=== PATIENT | female | born 1960 | race Caucasian/White ===

== ENCOUNTER 2021-05-06 14:48 | Emergency (ER) | payer OTHER, SELFPAY ==
[2021-05-06 14:42] VITALS: BP 112/53; PULSE 67; RESP 18; TEMP 36.8; O2SAT 99
--- NOTE | 2021-05-06 15:00 | DI.RAD_ITS ---
Exam(s) XR KNEE LT 4V+ EXAM: XR KNEE LT 4V+ CLINICAL HISTORY: pain, knee gave out, fell TECHNIQUE: COMPARISON: No exams were available for comparison FINDINGS: Four views were obtained. There may be a small knee joint effusion. There is no evidence of acute f racture or dislocation. IMPRESSION: RADIATION DOSE DELIVERED: Total DLP
[2021-05-06 15:01] VITALS: BP 113/94; PULSE 67; O2SAT 98
[2021-05-06] MEDS: fentaNYL 100 MCG/2 ML VIAL 50 MCG IVP ×2 (15:08→17:12)
--- NOTE | 2021-05-06 15:26 | W.ED.GENAD ---
Discharge Plan Disposition Patient Disposition: HOME Condition: Improving Discharge Details Clinical Impression: MCL sprain of left knee Primary Care Provider: Unknown,Unknown ED Provider: Rossi Khan Home Meds and New Rx's Prescriptions: New oxycodone 5 mg capsule 5 mg PO Q8H PRN (Reason: pain) Qty: 7 RF: 0 diazepam [Valium] 2 mg tablet 2 mg PO BID PRN (Reason: muscle spasm) Qty: 4 RF: 0 Discharge Instructions Instructions: Knee Sprain (ED) Additional Instructions: Use knee immobilizer as directed. Use crutches as directed as needed for ambulation. Rest ice compression elevation. Please follow-up with orthopedics within the neck 3 to 5 days if continued pain. Follow up with primary care provider in 3-5 days. Return to ED sooner if any worsening or concerns. Increase oral fluids. Please take Tylenol or Ibuprofen with food every 4-6 hours as needed for pain and swelling. Referrals: Curry Alvares MD [ [facility]FF [facility]YSICIAN] - 1 week Medical Decision Making <RENÉ Hazel - Last Filed: 05/06/21 16:14> Patient is a 60-year-old female presenting after stepping awkwardly 2 weeks ago, knee pain ever since, knee gave out today. She requires 50 mcg of fentanyl via EMS in route, pain is returning now, extremely limited exam, will provide an additional 50 mcg of fentanyl, obtain x-ray of the left knee, and once pain is adequately controlled, attempt to assess the knee in greater detail. Patient began yelling out in discomfort, reporting her knee has sharp shooting spasm pains. Patient given 5 mg IV Valium. Subsequent evaluation patient is resting comfortably, reports that the spasms have resolved, requesting a warm blanket. Still awaiting x-ray. <Rossi Khan - Last Filed: 05/06/21 23:21> Care assumed from provider (RENÉ Leigh) Please see their initial HPI, PE, and documentation. Discussed patient details and case and pending workup and disposition. Patient is hemodynamically stable, and alert and oriented. Pending left knee x-ray. Patient returns from x-ray is requesting more fentanyl, 50 mics of fentanyl given by staff nurse icu resource team. [facility] x-ray has resulted report shows no acute findings. No evidence of joint effusion. Imaging protocol: XR Left knee. Views: 4 or more views. COMPARISON: No relevant prior studies available. FINDINGS: Bones/joints: Normal. No significant degenerative changes. Soft tissues: Normal. No evidence of joint effusion. IMPRESSION: No acute findings. Thank you for allowing us to participate in the care of your patient. Dictated and Authenticated by: Davidson Rowell MD Upon patient reevaluation she is continuing to complain of severe pain. Intermittent muscle spasms noted to the posterior popliteal space down into her calf and she reports radiation up into her posterior thigh. Negative posterior drawer test increased tenderness with anterior drawer test. Does have medial joint tenderness with Estrellita's test. Patient is [facility] be [facility] She is requesting an MRI which are explained to her that we do not have the capabilities at this time I did offer her CT which patient declined. I also did discuss that even the patient was transferred to another facility that the provider may decide not to order an MRI patient and family are aware of this. Plan is to discharge patient with oxycodone and Valium. Will give p.o. trial here and attempt to get patient up on crutches to see how she does. 1958: [facility] contacted for patient request for Transfer. 2020: Ortho paged. 2022: Informed by staff nurse icu resource team, patient requesting to be discharged. Patient assisted by myself and staff into a wheelchair and out to her car. Patient was given crutches and demonstrated proper use. Patient was given oxycodone and 2 mg of Valium at discharge which seemed to improve her pain somewhat. Discussed follow-up care with orthopedics, home care rest ice compression elevation. Patient verbalized understanding. After patient's discharge I did speak with an ER doctor from the [facility] who reported that their MRI is not working at this time and he also reiterated that an emergent MRI is most likely not indicated at this time for patient symptoms. Patient placed on the orthopedic follow-up list. Differential diagnosis includes but not limited to occult fracture, ligament tear, joint effusion, musculoskeletal sprain or strain, muscle spasms. HPI <RENÉ Hazel - Last Filed: 05/06/21 16:14> General Mode of arrival: EMS. Date/Time Provider Initiated Documentation: 05/06/21 15:02. Limitations to Documentation: no limitations. Information obtained by: patient and EMS. HPI Narrative: This is a 60-year-old female, reports bilateral plantar fasciitis and carpal tunnel, presenting to the ER via EMS for left knee pain. Patient states approximately 2 weeks ago she stepped awkwardly in the field and had primarily anterior knee discomfort ever since. Pain was manageable with [id number] Tylenol or Motrin and she eventually began using a cane. She states today things felt pretty well but throughout the day they got worse, while walking today she had more severe pain and her knee gave out causing her to fall to the ground. She denies any other injury. She denies any numbness, tingling, weakness. Denies history of issues with that knee. Denies chest pain, shortness of breath, fever, history of DVT or PE. EMS called and patient presented after 50 mcg of fentanyl, reports her pain went from a 10 out of 10 down to a 1 out of 10. Patient is hesitant to move her knee, states that when she moves her knee her pain is worse, would like us to cut her pants off. Patient states occasionally she gets pain wraps around from the front of her leg to the posterior aspect of her knee and feels like a spasm. Occasionally she cries out in discomfort. Related Data Home Medications Medication Instructions Recorded Confirmed diazepam [Valium] 2 mg PO BID PRN #4 tab 05/06/21 oxycodone 5 mg PO Q8H PRN #7 cap 05/06/21 Previous Rx's Medication Instructions Recorded diazepam [Valium] 2 mg PO BID PRN #4 tab 05/06/21 oxycodone 5 mg PO Q8H PRN #7 cap 05/06/21 Allergies Allergy/AdvReac Type Severity Reaction Status Date / Time No Known Allergies Allergy Unverified 05/06/21 14:48 General Stated Complaint: Orthopedic BELLE: 3 Review of Systems <RENÉ Hazel - Last Filed: 05/06/21 16:14> Constitutional Constitutional: Denies fever(s) and Denies weakness Cardiovascular Cardiovascular: Denies chest pain and Denies dyspnea Respiratory Respiratory: Denies cough and Denies dyspnea Musculoskeletal Musculoskeletal: Denies deformity, Reports arthralgias, Denies numbness, Reports stiffness and Denies tingling Integumentary/Breasts Skin/Breast: Denies rash Neurologic Neurologic: Denies numbness, Denies tingling and Denies weakness PFSH <RENÉ Hazel - Last Filed: 05/06/21 16:14> Social History Smoking/Tobacco Use Status: Former Tobacco Use Smoking risk assessment performed?: Yes Substance use type: does not use Do you feel safe at home: Yes Do you feel safe in your relationship?: Yes Exam <RENÉ Hazel - Last Filed: 05/06/21 16:14> Const General: cooperative, healthy appearing and no acute distress Orientation: alert, awake and oriented x3 Other: Appears slightly uncomfortable HENMT Head: normal to inspection, normocephalic and atraumatic Eyes General: appearance normal, both eyes and all related structures Conjunctivae: conjunctivae normal Neck Neck: normal visual inspection, trachea midline and supple Resp Effort & Inspection: normal respiratory effort and able to speak in complete sentences Auscultation: clear to auscultation bilaterally Cardio Rate: regular rate Rhythm: regular rhythm Skin General skin exam: no rashes or lesions noted Neuro General: patient alert, patient awake, moves all extremities and no focal motor deficits Cognition: normal cognition Speech: speech normal Motor: muscle tone normal throughout Sensory Exam: no sensory deficits noted Extrem General: normal to inspection and capillary refill normal Other: Left knee exam extremely limited. Patient holds her knee and almost a fully extended position. No obvious deformity, swelling, ecchymosis or erythema. Normal capillary refill and dorsalis pedal pulse. No palpable cord in the calf. Patient is extremely hesitant to bend her knee whatsoever. She has diffuse mild discomfort across the entire aspect of her knee. Unable to assess laxity. Psych Appearance: grossly normal Mental Status: mental status grossly normal Course <RENÉ Hazel - Last Filed: 05/06/21 16:14> Vital Signs Vital signs: Vital Signs Temperature 36.8 C 05/06/21 14:42 Pulse 67 05/06/21 14:42 Respiratory Rate 18 05/06/21 14:42 Blood Pressure 112/53 L 05/06/21 14:42 Pulse Oximetry 99 05/06/21 14:42 Temperature 36.8 C 05/06/21 14:42 Temperature Source Skin 05/06/21 14:42 Pulse 67 05/06/21 15:01 Respiratory Rate 18 05/06/21 14:42 Respiratory Effort Non-Labored 05/06/21 14:49 Blood Pressure 113/94 H 05/06/21 15:01 Blood Pressure Position Supine 05/06/21 14:42 Pulse Oximetry 98 05/06/21 15:01 Oxygen Delivery Method Room Air 05/06/21 14:42 Oxygen Flow Rate 0 05/06/21 14:42 Pain Level 2 05/06/21 15:08 Sign Out <RENÉ Hazel - Last Filed: 05/06/21 16:14> Sign Out Data: Sign Out Comment: Left knee pain for 2 weeks after stepping awkwardly, gave out today, severe pain. 50 mcg of fentanyl via EMS, another dose given here, began having spasms, given a 5 mg IV morphine. Limited knee exam secondary to discomfort. Pedal pulse intact. Awaiting imaging and reevaluation Last updated by David Brenner PA at 05/06/21 16:03
[2021-05-06] MEDS: diazePAM 10 MG/2 ML SYR 5 MG IVP (15:28)
[2021-05-06 16:02] VITALS: PULSE 68; RESP 12; O2SAT 99
[2021-05-06 18:47] VITALS: BP 117/54; PULSE 69; TEMP 36.7; O2SAT 96
[2021-05-06] MEDS: ACETAMINOPHEN 1,000 MG/100 ML BTL 400 MG IVPB (18:54)
--- NOTE | 2021-05-06 19:08 | DI.VRAD_ITS ---
PROCEDURE INFORMATION: Exam: XR Left Knee Exam date and time: 05/06/2021 3:03 PM Age: 60 years old Clinical indication: Injury or trauma; Other: Hiking 1 month ago/ just gave out after fall today; Sprain or strain; Patella or knee; Left TECHNIQUE: Imaging protocol: XR Left knee. Views: 4 or more views. COMPARISON: No relevant prior studies available. FINDINGS: Bones/joints: Normal. No significant degenerative changes. Soft tissues: Normal. No evidence of joint effusion. IMPRESSION: No acute findings. Dictated and Authenticated by: Davidson Rowell MD. Ordering:TAMMI Hernandez MD
[2021-05-06] MEDS: diazePAM 2 MG TAB PO ×2 (20:04→20:47)
[2021-05-06] MEDS: oxyCODONE 5 MG TAB PO (20:12)
[2021-05-06 20:44] VITALS: BP 128/55; PULSE 64; TEMP 36.6; O2SAT 96
== END 2021-05-06 21:16 | disposition home or self-care (01) ==
PROVIDERS: Emergency Provider Registered Nurse Emergency
DX: S83.412A Sprain of medial collateral ligament of left knee, initial encounter (principal); X50.1XXA Overexertion from prolonged static or awkward postures, initial encounter
CPT/HCPCS: 29505; 96365; 96375; 99284; 73564; J0131; J3010; J3360

== ENCOUNTER → 2023-06-05 01:12 | Outpatient (CLI) | payer OTHER, SELFPAY ==
--- NOTE | 2023-06-05 | DI.RAD_ITS ---
Exam(s) XR ANKLE LT COMPLETE EXAM: XR ANKLE LT COMPLETE CLINICAL HISTORY: NEW PAIN AND SWELLING,M25.572 TECHNIQUE: 2D digital imaging was performed of the left ankle. Three images were obtained. AP, lat eral and oblique views were obtained. COMPARISON: No exams were available for comparison FINDINGS: BONES: No acute fracture is present. No bony destructive lesion is seen. Plantar calcaneal spur and l arge enthesophyte at the posterior calcaneus. JOINTS:The ankle mortise is normally aligned. SOFT TISSUE: Normal. IMPRESSION: Calcaneal spurs. DATA REPOSITORY: RADIATION DOSE DELIVERED:
--- NOTE | 2023-06-05 | DI.RAD_ITS ---
Exam(s) XR KNEE RT 4V AP,LAT,CINDA,PAT EXAM: XR KNEE RT 4V AP,LAT,CINDA,PAT CLINICAL HISTORY: NEW PAIN,SWELLING, H/O HOUT BACK OF KNEES,M25.4138. TECHNIQUE: 2D digital imaging was performed of the right knee. Three views obtained. AP, lateral an d PA tunnel views were obtained. COMPARISON: No priors for comparison. FINDINGS: BONES: No acute fracture is present. No bony destructive lesion is seen. Enthesophytes are seen at th e anterior patella. JOINTS: There is mild narrowing of the medial femoral tibial joint. No joint effusion is seen. SOFT TISSUE: Normal. IMPRESSION: Mild degenerative changes of the right knee. DATA REPOSITORY: RADIATION DOSE DELIVERED:
--- NOTE | 2023-06-05 | DI.RAD_ITS ---
Exam(s) XR KNEE LT 4V AP,LAT,CINDA,PAT EXAM: XR KNEE LT 4V AP,LAT,CINDA,PAT CLINICAL HISTORY: NEW PAIN, SWELLING, H/O GOUT IN BACK OF KNEES,M25.8392. TECHNIQUE: 2D digital imaging was performed of the left knee. Three images were obtained. AP, late ral and PA tunnel views were obtained. COMPARISON: CR,XR XR KNEE LT 4V+ from 05/06/2021 FINDINGS: BONES: No acute fracture is present. No bony destructive lesion is seen. There are enthesophytes at the anterior patella. JOINTS: There is mild narrowing of the medial femoral tibial joint. There is also small osteophyte i n the medial tibial plateau. No joint effusion is seen. No loose body. SOFT TISSUE: Normal. IMPRESSION: Mild degenerative changes in the left knee. DATA REPOSITORY: RADIATION DOSE DELIVERED:
== END ==
PROVIDERS: Visit Provider Nurse Practitioner Adult Health
DX: M17.0 Bilateral primary osteoarthritis of knee (principal)
CPT/HCPCS: 73564; 73610

== ENCOUNTER 2023-06-27 11:36 | Emergency (ER) | payer OTHER, SELFPAY ==
--- NOTE | 2023-06-27 11:30 | RT.EKG_ITS ---
APPROVED REPORT Exam: Resting ECG Reason for Exam: crackling in chest Patient Location: E HR:82 bpm ECG Measurements Heart Rate 82 AXIS WY 163 P 22 QRSd 100 QRS 74 QT 373 T 34 QTc 437 Conclusion Sinus rhythm.. V-rate 60- [address] segment or T wave abnormalities to suggest occlusive MO
[2023-06-27 11:38] VITALS: BP 97/66; PULSE 102; RESP 20; TEMP 37.1; O2SAT 95
--- NOTE | 2023-06-27 11:56 | W.ED.GENAD ---
Discharge Plan Disposition Patient Disposition: Home Condition: Good Discharge Details Clinical Impression: URI (upper respiratory infection), Acute bronchitis Primary Care Provider: Unknown,Unknown ED Provider: Linn Whitney Home Meds and New Rx's Prescriptions: New benzonatate 200 mg capsule 200 mg PO TID PRN (Reason: cough) Qty: 10 0RF albuterol sulfate 2.5 mg /3 mL (0.083 %) solution for nebulization 2.5 mg inhalation Q4H PRN (Reason: shortness of breath or wheezing) Qty: 75 0RF prednisone 20 mg tablet 40 mg PO DAILY 4 Days Qty: 8 0RF Continued semaglutide 1 mg/dose (2 mg/1.5 mL) pen injector 2.4 mg subcut .weekly allopurinol 100 mg tablet 100 mg PO DAILY sertraline 100 mg tablet 100 mg PO DAILY atorvastatin 10 mg tablet 10 mg PO DAILY Discharge Instructions Instructions: Benzonatate (By mouth), Albuterol (By breathing), Upper Respiratory Infection (ED), Acute Bronchitis (ED) Additional Instructions: As we discussed, your x-rays were reassuring. There are some slight chronic changes such as scarring and a small nodule. You may discuss this further with your primary care. You did have a slight wheeze when you first came in, this is concerning for bronchitis. You are negative for flu, COVID, RSV. As you responded well to the albuterol, and encouraged to keep using your nebulizer. He may use the Tessalon Perles to help with symptomatic management, this will help cut back on her cough. Please continue to encourage hydration. Honey and warm water may also help reduce your cough. Try sitting yourself upright more. May use Tylenol and or ibuprofen as needed for discomfort. If your symptoms persist or your wheezing increases, you may begin the steroids as we discussed. However, as you responded well to the albuterol, hoping that he will not need to progress to this as this medication has more side effects. Please follow up with your primary care next week for reevaluation. If you develop and new/worsening symptoms, please seek care urgently once again. Medical Decision Making Patient is a pleasant 62-year-old female presenting today with chief complaint of cough and wheezing. She reports this began 3 days ago. Yesterday developed a runny nose. Denies any fevers or chills. States that she has had COVID and bronchitis in the past and feels similar. States that she has been having difficulty with a runny nose and her CPAP machine which has been making it difficult for her to sleep. Denies any history of respiratory illnesses such as COPD but does state that she has obstructive sleep apnea. She is not a smoker. No known sick contacts. On exam, patient appears nontoxic. She does have a fairly violent cough when she does have it but it is fairly intermittent. No sputum production. She is afebrile and hemodynamically stable. She was initially slightly tachycardic but this is come down at the time I evaluate the patient maintaining her oxygen saturations. She has some scattered wheezing on auscultation. Crackles in the left upper lobe, will obtain chest x-ray for further evaluation. Normal cardiac exam as well as HEENT exam. Patient has used nebulizer historically, has 1 at home. Will give albuterol as she has done well with this in the past when she has had bronchitis and COVID. FINDINGS: 2 views: Heart size is normal. The mediastinum is not widened. There is some vertical scarring in the right lower lobe. Other possibly is at this may represent a prominent vessel. In the left lung there is a 8 x 6 mm nodular density in the midlung field on the frontal view lateral to the hilum. There are no pleural effusions. No pulmonary edema. IMPRESSION: Bilateral lung findings as above. Comparison to outside prior films would be helpful. No pleural effusions evident. Discussed this findings with the patient. She will follow-up with her primary care regarding these chronic findings. Patient is seen at the [facility] typically. Encourage hydration. Reevaluated the patient after she received her nebulizer and her lungs have cleared. Believe that she is developing bronchitis. However, given how acutely this is beginning as well as her response albuterol, I would like to hold off on steroids so that she does not have any type of immunosuppression if possible. Will watch and wait with steroids. She has required these in the past with bronchitis. Lessening of Tessalon Perles to help with her cough which is keeping her up. Encouraged hydration as well as trying to boost herself up more when sleeping. Strict return precautions were discussed. She will follow-up with her primary care next week. In the event that her wheezing increased, she will begin oral steroids which has been sent to the pharmacy. All of her questions and concerns were addressed and she is in agreement this plan. HPI General Date/Time Provider Initiated Documentation: 06/27/23 11:39. Limitations to Documentation: no limitations. Information obtained by: patient and RN notes reviewed. History of Present Illness 62 year old F presents to the emergency department with the chief complaint of cough, congestion, rhinorrhea, described as moderate and similar to prior episodes, Patient started experiencing this day(s) (2) and it has been constant. No relieving factors improve symptom(s), Other factors that worsen symptoms (laying flat) . Patient notes cough and malaise (fatigue, unable to sleep well); denies diaphoresis, fever/chills, headaches, loss of appetite, nausea/vomiting, shortness of breath, syncope and weakness. Patient did receive the following treatments prior to arrival, none Related Data Home Medications Medication Instructions Recorded Confirmed albuterol sulfate 2.5 mg/3 mL 2.5 mg (3 mL) inhalation Q4H PRN 06/27/23 (0.083 %) solution for nebulization shortness of breath or wheezing #75 mL allopurinol 100 mg tablet 100 mg PO DAILY 06/27/23 06/27/23 atorvastatin 10 mg tablet 10 mg PO DAILY 06/27/23 06/27/23 benzonatate 200 mg capsule 200 mg PO TID PRN cough #10 caps 06/27/23 prednisone 20 mg tablet 40 mg (2 x 20 mg) PO DAILY 4 days 06/27/23 #8 tabs semaglutide 1 mg/dose (2 mg/1.5 2.4 mg subcut .weekly 06/27/23 06/27/23 mL) subcutaneous pen injector sertraline 100 mg tablet 100 mg PO DAILY 06/27/23 06/27/23 Previous Rx's Medication Instructions Recorded albuterol sulfate 2.5 mg/3 mL 2.5 mg (3 mL) inhalation Q4H PRN 06/27/23 (0.083 %) solution for nebulization shortness of breath or wheezing #75 mL benzonatate 200 mg capsule 200 mg PO TID PRN cough #10 caps 06/27/23 prednisone 20 mg tablet 40 mg (2 x 20 mg) PO DAILY 4 days 06/27/23 #8 tabs Allergies Allergy/AdvReac Type Severity Reaction Status Date / Time No Known Allergies Allergy Unverified 06/27/23 11:49 General Stated Complaint: RespSymp BELLE: 3 Review of Systems Constitutional Constitutional: Reports as per HPI and Denies headache(s) Eyes Eyes: Reports as per HPI, Denies eye discharge and Denies irritation ENT Ears, Nose, Mouth, and Throat: Reports as per HPI and Denies headache(s) Cardiovascular Cardiovascular: Reports as per HPI, Denies chest pain and Denies dyspnea Respiratory Respiratory: Reports as per HPI and Denies dyspnea Gastrointestinal Gastrointestinal: Reports as per HPI, Denies abdominal pain, Denies change in bowel habits, Denies nausea and Denies vomiting Integumentary/Breasts Skin/Breast: Reports as per HPI and Denies rash Neurologic Neurologic: Reports as per HPI and Denies headache(s) PFSH All Active Problems (Updated 06/27/23 @ 13:58 by RENÉ Gar) Acute bronchitis (Acute) URI (upper respiratory infection) (Acute) MCL sprain of left knee (Acute) Social History Smoking/Tobacco Use Status: Former Tobacco Use Smoking risk assessment performed?: Yes Alcohol Intake: current Alcohol Intake frequency: holidays/special occasions only Alcohol type: wine Substance use type: does not use Do you feel safe at home: Yes Do you feel safe in your relationship?: Yes Exam Const General: cooperative, healthy appearing, comfortable, no acute distress, well developed and well groomed Nutritional Appearance: well nourished and obese Orientation: alert and awake [facility] Head: normal to inspection, normocephalic and atraumatic Ears: hearing grossly normal bilaterally, external ears normal and TM's normal bilaterally General nose exam: external nose normal and nares normal Face and sinus: normal facial exam, sinuses nontender and face symmetric Mouth: oral mucosae normal, lip normal, tongue normal, oropharynx normal and moist mucous membranes Teeth and gingiva: dentition normal Throat: posterior oropharynx normal, tonsils normal and uvula midline Eyes General: appearance normal, both eyes and all related structures Neck Neck: normal visual inspection, full ROM and no lymphadenopathy Chest Chest: normal inspection of the chest and normal palpation of entire chest wall Resp Effort & Inspection: normal respiratory effort, able to speak in complete sentences and no respiratory distress Auscultation: no rales, no rhonchi and wheezes (scattered, faint wheezing) expiratory wheezes Cardio Rate: regular rate Rhythm: regular rhythm Heart Sounds: S1 normal and S2 normal Skin General skin exam: no rashes or lesions noted Neuro General: patient alert and patient awake Cognition: normal cognition Speech: speech normal Gait: normal gait Course Vital Signs Vital signs: Vital Signs Temperature 37.1 C 06/27/23 11:38 Pulse 102 H 06/27/23 11:38 Respiratory Rate 20 06/27/23 11:38 Blood Pressure 97/66 L 06/27/23 11:38 Pulse Oximetry 95 06/27/23 11:38 Temperature 37.1 C 06/27/23 11:38 Temperature Source Skin 06/27/23 11:38 Pulse 102 H 06/27/23 11:38 Respiratory Rate 20 06/27/23 11:38 Blood Pressure 97/66 L 06/27/23 11:38 Blood Pressure Position Sitting 06/27/23 11:38 Pulse Oximetry 95 06/27/23 11:38 Oxygen Delivery Method Room Air 06/27/23 11:38 Oxygen Flow Rate 0 06/27/23 11:38 Pain Level 8 06/27/23 11:38 Comment mucinex DM, tylenol, ibuprofen and cepacol losenges took nyquil last night states BP is always low but does not know numbers 06/27/23 11:38
--- NOTE | 2023-06-27 12:30 | DI.RAD_ITS ---
Exam(s) XR CHEST 2V PA LATERAL EXAM: XR CHEST 2V PA LATERAL CLINICAL HISTORY: cough. TECHNIQUE: 2D digital imaging was performed. COMPARISON: No exams were available for comparison FINDINGS: 2 views: Heart size is normal. The mediastinum is not widened. There is some vertical scarring in the right lower lobe. Other possibly is at this may represent a p rominent vessel. In the left lung there is a 8 x 6 mm nodular density in the midlung field on the frontal view lateral to the hilum. There are no pleural effusions. No pulmonary edema. IMPRESSION: Bilateral lung findings as above. Comparison to outside prior films would be helpful. No pleural effusions evident. DATA REPOSITORY: RADIATION DOSE DELIVERED:
[2023-06-27] MEDS: Albuterol 2.5 MG/3 ML INH SOLN VIAL UPD (13:22)
[2023-06-27] MEDS: Albuterol 2.5 MG/3 ML INH SOLN VIAL 7.5 MG UPD (14:30)
[2023-06-27] MEDS: Benzonatate 200 MG CAP 600 MG PO (14:30)
== END 2023-06-27 14:34 | disposition home or self-care (01) ==
PROVIDERS: Emergency Provider Physician Assistant
DX: J20.9 Acute bronchitis, unspecified (principal); J06.9 Acute upper respiratory infection, unspecified; R91.8 Other nonspecific abnormal finding of lung field; Z11.52 Encounter for screening for COVID-19; Z87.891 Personal history of nicotine dependence
CPT/HCPCS: 93005; 94640; 99284; 71046; 93010; J7613

== ENCOUNTER 2024-05-27 01:03 | Outpatient (CLI) | payer OTHER, SELFPAY ==
--- NOTE | 2024-05-27 | DI.MAMMO_ITS ---
Exam(s) MAMMO SCREENING EXAM: MAMMO SCREENING CLINICAL HISTORY: SCREENING, Z12.31,[id number],FAM H/O BREAST CA,H/O BX 25 YRS AGO. TECHNIQUE: Bilateral full field digital CC and MLO mammographic images were obtained with 3D tomosyn thesis and utilizing computer aided detection (CAD). COMPARISON: Prior outside mammogram 2018 reviewed FINDINGS: There has been no significant change in the appearance and distribution of the fibroglandular tissue. No new findings in the immediate vicinity of a biopsy marker clip in the left breast. There are no new spiculated masses nor malignant appearing microcalcification groups. There is no significant architectural distortion nor skin thickening-retraction. IMPRESSION: No radiographic evidence of malignancy. BI-RADS Category 1 - Negative Breast Density - Category B - Scattered areas of fibroglandular density Breast density Category C or D implies that the patient has dense breast tissue. Dense breast tissue can make it harder to find cancer on a mammogram. Dense breast tissue is also associated with an incr eased risk of breast cancer. This information about the result of the mammogram report was provided to the patient to raise their awareness. Use this report when you speak with the patient about their risks for breast cancer, which includes their family history. At that time, you may recommend additional screening tests (Ultrasoun d or MRI) as these tests may add significant information. A negative radiographic report should not delay biopsy if a dominant or clinically suspicious mass is present. Up to ten percent of cancers are not identified on mammography. A negative report may reinforce clinical impression. Adenosis and dense breasts may obscure an underlying neoplasm. False positive reports average 6 to 10%. Patient will receive a letter notifying them of these results.
== END 2024-05-27 01:23 ==
PROVIDERS: PCP Nurse Practitioner Adult Health; Visit Provider Nurse Practitioner Adult Health
DX: Z12.31 Encounter for screening mammogram for malignant neoplasm of breast (principal); R92.323 Mammographic fibroglandular density, bilateral breasts
CPT/HCPCS: 77063; 77067